=== PATIENT | female | born 1995 ===

== ENCOUNTER 2018-06-25 21:19 | Emergency (ER) | payer OTHER ==
[2018-06-25 21:27] VITALS: RESP 16; O2SAT 98
[2018-06-25 22:13] LABS: BASO # 0.1 K/uL (0.0-0.2); BASO % 0.7 % (0.0-2.0); EOS # 0.1 K/uL (0.0-0.7); HEMOGLOBIN 10.8 g/dL (12.0-16.0); LYMPH # 2.1 K/uL (1.0-4.3); LYMPH % 25.7 % (20.0-40.0); MEAN CELL VOLUME 98.1 fl (81.0-99.0); MEAN CORPUSCULAR HGB CONC 33.7 g/dL (33.0-37.0); MEAN PLATELET VOLUME 8.5 fl (7.2-11.7); MONO # 0.7 K/uL (0.0-0.8); MONO % 8.6 % (0.0-10.0); NEUT # 5.2 K/uL (1.8-7.0); NRBC % 0.1 % (0.0-0.0); RBC 3.26 Mil/uL (3.80-5.20); RED CELL DISTRIBUTION WIDTH 12.4 % (11.5-14.5); WHITE BLOOD COUNT 8.1 K/uL (4.8-10.8)
[2018-06-25 22:20] LABS: SQUAMOUS EPITHIAL 7 /hpf (0-5); URINE BACTERIA RARE (<OCC); URINE BILIRUBIN NEGATIVE (NEGATIVE); URINE BLOOD NEGATIVE (NEGATIVE); URINE CLARITY SLIGHTY-CLOUDY (Clear); URINE COLOR YELLOW (YELLOW); URINE GLUCOSE (UA) NEG (Normal); URINE LEUKOCYTE ESTERASE SMALL Leu/uL (Negative); URINE PROTEIN NEGATIVE (NEGATIVE)
[2018-06-25 22:22] LABS: ALB/GLOB RATIO 1.1 (1.0-2.1); ALBUMIN 3.9 g/dL (3.5-5.0); ALT/SGPT 122 U/L (9-52); AST/SGOT 82 U/L (14-36); BLOOD UREA NITROGEN 19 mg/dl (7-17); CALCIUM 8.8 mg/dL (8.4-10.2); GFR NON-AFRICAN AMERICAN > 60
[2018-06-25] MEDS ORDERED: Sodium Chloride 0.9% 1,000 ML IV STA (23:21)
[2018-06-26] MEDS ORDERED: Fluconazole 150 MG TAB PO STA (03:29)
[2018-06-26] MEDS ORDERED: Fluconazole 150 MG TAB PO ONE (03:38)
[2018-06-26 03:50] VITALS: BP 92/55; PULSE 83; TEMP 98
--- NOTE | 2018-06-26 03:57 | ED PDOC ---
HPI: Abdomen Time Seen by Provider: 06/25/18 21:28 Chief Complaint (Nursing): Abdominal Pain Chief Complaint (Provider): Lower abdominal pain History Per: Patient History/Exam Limitations: no limitations Onset/Duration Of Symptoms: Days Location Of Pain/Discomfort: Suprapubic Quality Of Discomfort: Cramping Additional Complaint(s): 23 yo female with no medical problems presents for lower abdominal pain for 1 month since having an IUD placed. Pt states she was seen in ER 1 week ago and diagnosed with UTI. Pt statges she took cipro and does not feel improvement. Pt reports having white discharge which began after starting the antibiotics. PT also reports some pain during intercourse for the last week. No fever/chills. No N/V/D. Past Medical History Reviewed: Historical Data, Nursing Documentation, Vital Signs Vital Signs: Last Vital Signs Temp 98.3 F 06/25/18 21:25 Pulse 101 H 06/25/18 21:25 Resp 16 06/25/18 21:25 BP 100/66 06/25/18 21:25 Pulse Ox 98 06/25/18 21:25 - Medical History PMH: No Chronic Diseases - Family History Family History: States: Unknown Family Hx - Immunization History Hx Tetanus Toxoid Vaccination: No Hx Influenza Vaccination: No Hx Pneumococcal Vaccination: No - Home Medications Home Medications: Ambulatory Orders Medication Instructions Recorded Cephalexin [cephalexin] 500 mg PO Q12 #14 cap 06/18/18 - Allergies Allergies/Adverse Reactions: Allergies Allergy/AdvReac Type Severity Reaction Status Date / Time No Known Allergies Allergy Verified 06/25/18 21:25 Review of Systems ROS Statement: Except As Marked, All Systems Reviewed And Found Negative Constitutional: Negative for: Fever, Chills Cardiovascular: Negative for: Chest Pain, Palpitations Gastrointestinal: Positive for: Abdominal Pain. Negative for: Nausea, Vomiting, Diarrhea Genitourinary Female: Positive for: Vaginal Discharge, Pelvic Pain. Negative for: Dysuria, Frequency, Vaginal Bleeding Physical Exam - Reviewed Nursing Documentation Reviewed: Yes Vital Signs Reviewed: Yes - Physical Exam Appears: Positive for: Well, Non-toxic, No Acute Distress Head Exam: Positive for: ATRAUMATIC, NORMAL INSPECTION, NORMOCEPHALIC Skin: Positive for: Normal Color, Warm, DRY Eye Exam: Positive for: Normal appearance ENT: Positive for: Normal ENT Inspection Neck: Positive for: Normal, Painless ROM Cardiovascular/Chest: Positive for: Regular Rate, Rhythm Respiratory: Positive for: Normal Breath Sounds. Negative for: Accessory Muscle Use, Respiratory Distress Gastrointestinal/Abdominal: Positive for: Soft, Tenderness (Suprapubic ). Negative for: Normal Exam Pelvic Exam: Positive for: External Exam Normal, No Cerv. Motion Tender, No Masses, Discharge (White, clumpy). Negative for: Speculum Exam Normal Back: Positive for: Normal Inspection Extremity: Positive for: Normal ROM Neurologic/Psych: Positive for: Alert, Oriented - Laboratory Results Result Diagrams: 06/25/18 22:00 06/25/18 22:00 - ECG O2 Sat by Pulse Oximetry: 98 Pulse Ox Interpretation: Normal Medical Decision Making Medical Decision Making: Pt has appointment with [facility]PER[facility] tomorrow. Cervical cultures obtained. Disposition - Clinical Impression Clinical Impression: Vulvovaginitis - Patient ED Disposition Is Patient to be Admitted: No Counseled Patient/Family Regarding: Diagnosis, Need For Followup, Rx Given - Disposition Disposition: Routine/Home Disposition Time: 03:46 Condition: GOOD Instructions: Vulvovaginal Yeast Infection
--- NOTE | 2018-06-26 09:03 | US ---
Date of service: 06/26/2018 PROCEDURE: HISTORY: pain COMPARISON: TECHNIQUE: FINDINGS: The uterus measures 6.9 x 3.4 x 4.1 centimeters. The endometrium measures 8 millimeters. There is fluid and debris within the endometrium which measures 4 millimeters. There is an intrauterine device in place. There is a right ovarian complex cyst measuring 2.7 centimeters. Left ovary is normal. IMPRESSION: Fluid and debris in the endometrial canal with intrauterine device in place. Complex right ovarian cyst.
== END 2018-06-26 04:08 | disposition home or self-care (01) ==
LOC: H.ER 21:19
DX: N76.0 Acute vaginitis (principal); Z97.5 Presence of (intrauterine) contraceptive device
CPT/HCPCS: 76830; 80053; 81003; 81025; 85025; 86631; 86632; 87070; 87086; 96361; 96374; 99284; J1885; J7030